=== PATIENT | male | born 1975 | race Caucasian/White ===

== ENCOUNTER → 2020-12-10 09:39 | Outpatient (BNVA) | payer OTHER, SELFPAY | PROVIDERS: Visit Provider Internal Medicine | DX: S49.92XD Unspecified injury of left shoulder and upper arm, subsequent encounter (principal); X58.XXXD Exposure to other specified factors, subsequent encounter; M54.5 Low back pain | CPT/HCPCS: 99202 ==

== ENCOUNTER 2022-10-19 15:52 | Emergency (ER) | payer OTHER, MEDICAID, SELFPAY ==
--- NOTE | ~2022-10-19 | XR_ITS ---
EXAMINATION: XR CHEST CLINICAL INFORMATION: Status post heavy lifting with rib cage pain. COMPARISON: None available. TECHNIQUE: 2 views of the chest were obtained. FINDINGS: The lungs are well-expanded and clear of acute process. The heart size and pulmonary vascularity is normal. No gross bony abnormality seen except for mild dextro scoliosis mid dorsal spine. XR/XR chest 2V IMPRESSION: Unremarkable chest examination.
[2022-10-19 16:10] VITALS: BP 115/69; PULSE 78; RESP 15; TEMP 37.1; O2SAT 97; BMI 26.4
--- NOTE | 2022-10-19 16:13 | ED.GENADULT ---
HPI - General Adult General Chief complaint: Back Pain/Injury <MAICOL Nicholson Last Filed: 10/19/22 16:16> Stated complaint: lifted something at work has pain in chest/back <MAICOL Nicholson Last Filed: 10/19/22 16:16> Time Seen by Provider: 10/19/22 16:54 <MAICOL Nicholson - Last Filed: 10/19/22 16:16> Source: patient <MAICOL Hancock Last Filed: 10/19/22 18:07> Mode of arrival: ambulatory <MAICOL Hancock Last Filed: 10/19/22 18:07> History of Present Illness HPI narrative: 47 yo M with no sig PMHx c/o L sided anterior lateral rib pain s/p lifting 100lb box at work a few days ago. States when lifted box felt a pop. Denies direct injury, trauma or fall. Pain worse with palpation, movement and deep breathing. Denies abd pain, N/V/D, hematuria, dysuria <MAICOL Hancock Last Filed: 10/19/22 18:07> Onset (ago): day(s) <MAICOL Hancock Last Filed: 10/19/22 18:07> Related Data Home medications: Previous Rx's Medication Instructions Recorded acetaminophen 500 mg tablet 500 mg PO Q6H PRN fever or pain 10/19/22 (Tylenol Extra Strength) #14 tabs cyclobenzaprine 5 mg tablet 5 mg PO Q8H PRN pain (scale score 10/19/22 7-10) 5 days #14 tabs lidocaine 5 % topical patch 1 patch topical DAILY PRN pain #30 10/19/22 (Lidoderm) ea naproxen 500 mg tablet 500 mg PO BID PRN pain 10 days #20 10/19/22 tabs <MAICOL Nicholson Last Filed: 10/19/22 16:16> Allergies/adverse reactions: Allergies Allergy/AdvReac Type Severity Reaction Status Date / Time No Known Allergies Allergy Verified 10/19/22 16:14 <MAICOL Nicholson Last Filed: 10/19/22 16:16> Review of Systems Review of Systems: Constitutional: No Fever, No Chills ENT/Mouth: No Ear Pain, No Nasal Congestion, No sore throat, No Rhinorrhea, No Swallowing Difficulty Cardiovascular: + Chest Wall Pain, + SOB Respiratory: No Cough, No Sputum, No Wheezing Gastrointestinal: No Nausea, No Vomiting, No Diarrhea, No Constipation, No Abdominal pain Genitourinary: No Dysuria, No Urinary Frequency, No Flank Pain Musculoskeletal: No joint pain, No Myalgias, No Joint Swelling Skin: No Skin Lesions, No rash Neuro: No Weakness, No Numbness, No Paresthesias <MAICOL Hancock Last Filed: 10/19/22 18:07> Yes all other systems are reviewed and are negative <MAICOL Hancock Last Filed: 10/19/22 18:07> Constitutional: Constitutional: Reports as per HPI <MAICOL Hancock Last Filed: 10/19/22 18:07> [facility] Past Medical History Attestation statement: The following information was validated with the patient. <MAICOL Hancock Last Filed: 10/19/22 18:07> Social History Social History: Social History Advance Directives: No Advance Directives Information Provided: No <MAICOL Nicholson Last Filed: 10/19/22 16:16> Physical Exam ED Vital Signs: Vital Signs - 24 hr 10/19/22 16:10 Temperature 98.7 F Pulse Rate 78 Respiratory Rate 15 Blood Pressure 115/69 Pulse Oximetry 97 Oxygen Delivery Method Room Air BMI result Body Mass Index 26.4 <MAICOL Nicholson - Last Filed: 10/19/22 16:16> Vital Signs - 24 hr 10/19/22 16:10 Temperature 98.7 F Pulse Rate 78 Respiratory Rate 15 Blood Pressure 115/69 Pulse Oximetry 97 Oxygen Delivery Method Room Air BMI result Body Mass Index 26.4 <MAICOL Hancock Last Filed: 10/19/22 18:07> Const General: cooperative, healthy appearing and no acute distress <MAICOL Hancock Last Filed: 10/19/22 18:07> Orientation/consciousness: patient oriented x3 <MAICOL Hancock Last Filed: 10/19/22 18:07> Limitations: no limitations <MAICOL Hancock - Last Filed: 10/19/22 18:07> HENMT Head: Yes normal to inspection and Yes atraumatic <MAICOL Hancock - Last Filed: 10/19/22 18:07> Ears: hearing grossly normal bilaterally <MAICOL Hancock - Last Filed: 10/19/22 18:07> General nose exam: Normal external nose present <MAICOL Hancock - Last Filed: 10/19/22 18:07> Face and sinus: Yes normal facial exam <MAICOL Hancock - Last Filed: 10/19/22 18:07> Eyes General: appearance normal, both eyes and all related structures <MAICOL Hancock - Last Filed: 10/19/22 18:07> EOM: EOMs intact bilaterally <MAICOL Hancock - Last Filed: 10/19/22 18:07> Neck Neck: Yes normal visual inspection and Yes no meningeal signs <MAICOL Hancock - Last Filed: 10/19/22 18:07> Chest Other: +ttp to right anterior lateral chest wall, reproducing subjective complaint, no erythema/eccyhmosis or flail chest. No CVAT <MAICOL Hancock - Last Filed: 10/19/22 18:07> Chest palpation & inspection: normal inspection of the chest, no crepitus and tenderness <MAICOL Hancock - Last Filed: 10/19/22 18:07> Resp Effort & Inspection: normal respiratory effort and no respiratory distress <MAICOL Hancock - Last Filed: 10/19/22 18:07> Auscultation: clear to auscultation bilaterally, no rales and no wheezes <MAICOL Hancock - Last Filed: 10/19/22 18:07> Cardio Rate: regular rate <MAICOL Hancock - Last Filed: 10/19/22 18:07> Heart sounds: S1 normal heart sound present and S2 normal heart sound present <MAICOL Hancock - Last Filed: 10/19/22 18:07> GI Inspection: Yes normal to inspection <MAICOL Hancock - Last Filed: 10/19/22 18:07> Palpation (GI): Soft to palpation, nontender, no guarding and not rigid <MAICOL Hancock - Last Filed: 10/19/22 18:07> General: Yes no CVA tenderness <Thania Johnson PA - Last Filed: 10/19/22 18:07> Back/Spine/Pelvis Other: No midline cervical/thoracic/lumbar spinous tenderness/step-off or deformity <MAICOL Hancock - Last Filed: 10/19/22 18:07> Back: no CVA tenderness <MAICOL Hancock - Last Filed: 10/19/22 18:07> Skin Rashes: no rashes <MAICOL Hancock - Last Filed: 10/19/22 18:07> Wounds: no wounds <MAICOL Hancock - Last Filed: 10/19/22 18:07> Neuro General: patient oriented x3, gait normal, tone normal, moves all extremities, no meningeal signs and no focal motor deficits <MAICOL Hancock - Last Filed: 10/19/22 18:07> Gait exam (Neuro): Normal gait present <MAICOL Hancock - Last Filed: 10/19/22 18:07> Extrem General: Yes normal to inspection <MAICOL Hancock - Last Filed: 10/19/22 18:07> Course Course Course Narrative: RME-16:15pm - 47yoM with No Sig PMHx who is presenting to the ER with complaints of bilateral rib cage pain that started Thursday after he lifted over 100 lb box at work and immediately started having this pain. Reports that the pain radiates to his back. Worse with deep inspiration. He denies any dizziness, change in vision, jaw pain, nausea/vomiting, paresthesias, dyspnea on exertion orthopnea, palpitations or paresthesias, cough, sputum production, abdominal pain, flank pain, dysuria hematuria or any other symptoms complaints or concerns at this time Plan: Labs, EKG, chest x-ray patient with most likely muscular skeletal pain patient can be seen in [facility] for further evaluation treatment. <MAICOL Nicholson - Last Filed: 10/19/22 16:16> RME-16:15pm - 47yoM with No Sig PMHx who is presenting to the ER with complaints of bilateral rib cage pain that started Thursday after he lifted over 100 lb box at work and immediately started having this pain. Reports that the pain radiates to his back. Worse with deep inspiration. He denies any dizziness, change in vision, jaw pain, nausea/vomiting, paresthesias, dyspnea on exertion orthopnea, palpitations or paresthesias, cough, sputum production, abdominal pain, flank pain, dysuria hematuria or any other symptoms complaints or concerns at this time Plan: Labs, EKG, chest x-ray patient with most likely muscular skeletal pain patient can be seen in [facility] for further evaluation treatment. 173--XR chest 2V IMPRESSION: Unremarkable chest examination. Results discussed with patient including worrisome signs and symptoms and strict return precautions, and when to return to the emergency department. They verbalized understanding and feel safe for discharge at this time. <MAICOL Hancock - Last Filed: 10/19/22 18:07> Medications Administered Discontinued Medications Generic Name Dose Route Start Last Admin Trade Name Freq PRN Reason Stop Dose Admin Cyclobenzaprine HCl 10 mg 10/19/22 17:31 10/19/22 17:39 Cyclobenzaprine Hcl 10 Mg Tablet PO 10/19/22 17:32 10 mg ONCE ONE Administration Ketorolac Tromethamine 30 mg 10/19/22 17:31 10/19/22 17:40 Ketorolac Tromethamine 30 Mg/Ml Vial IM 10/19/22 17:32 30 mg ONCE ONE Administration Lidocaine 1 patch 10/19/22 17:31 10/19/22 17:39 Lidocaine 4 % Patch Adh..Patch TRANSDERMA 10/19/22 17:32 1 patch ONCE ONE Administration Protocol <MAICOL Nicholson - Last Filed: 10/19/22 16:16> Medications Administered Discontinued Medications Generic Name Dose Route Start Last Admin Trade Name Freq PRN Reason Stop Dose Admin Cyclobenzaprine HCl 10 mg 10/19/22 17:31 10/19/22 17:39 Cyclobenzaprine Hcl 10 Mg Tablet PO 10/19/22 17:32 10 mg ONCE ONE Administration Ketorolac Tromethamine 30 mg 10/19/22 17:31 10/19/22 17:40 Ketorolac Tromethamine 30 Mg/Ml Vial IM 10/19/22 17:32 30 mg ONCE ONE Administration Lidocaine 1 patch 10/19/22 17:31 10/19/22 17:39 Lidocaine 4 % Patch Adh..Patch TRANSDERMA 10/19/22 17:32 1 patch ONCE ONE Administration Protocol <MAICOL Hancock - Last Filed: 10/19/22 18:07> Medical Decision Making Medical Decision Making [facility] Narrative: 47 yo M with no sig PMHx c/o L sided anterior lateral rib pain s/p lifting 100lb box at work a few days ago. States when lifted box felt a pop. On exam VSS, NAD, reproducible right anteriorlateral chest wall ttp, no flail chest or rash/erythema. No CVAT. Abdomen soft and nontender. Concern for MSK strain vs costochondritis vs rib fracture. Low suspicion for intaabdominal etiology including cholecystitis/lithiasis vs pancreatitis or renal stone or ACS/PE Plan: EKG, CXR, pain control Please refer to course for remaining clinical decision making, interpretation of labs/imaging results, and discussions with consultants and/or family members. <MAICOL Hancock - Last Filed: 10/19/22 18:07> Differential Diagnosis Differential Diagnoses: The differential diagnosis associated with the presentation includes <MAICOL Hancock - Last Filed: 10/19/22 18:07> As above <MAICOL Hancock - Last Filed: 10/19/22 18:07> Admission/Observation Consideration of admission/observation: Escalation of care including admission/observation considered <MAICOL Hancock Last Filed: 10/19/22 18:07> Lab Data [facility] Lab Attestation statement: I reviewed the patient's lab results. <MAICOL Hancock Last Filed: 10/19/22 18:07> Independent Interpretation I performed an independent interpretation of an: EKG <MAICOL Hancock Last Filed: 10/19/22 18:07> Interpretation: EKG NSR rate 75, MD interval 158. incomplete RBBB, no previous EKGs to compare. No STEMI <MAICOL Hancock Last Filed: 10/19/22 18:07> Radiology Impression Discussion of test interpretation with radiology: I have reviewed the radiologist's reading. <MAICOL Hancock - Last Filed: 10/19/22 18:07> External Record Review External record reviewed: Inpatient record, Office record, Outpatient record, Prior outpatient labs, Prior outpatient radiology, Primary care record and Outside ED record <MAICOL Hancock - Last Filed: 10/19/22 18:07> Discharge Plan Discharge Clinical Impression: Acute costochondritis <MAICOL Nicholson Last Filed: 10/19/22 16:16> Patient Disposition: Home, Self-Care <MAICOL Nicholson Last Filed: 10/19/22 16:16> Instructions: Costochondritis (ED) <MAICOL Nicholson Last Filed: 10/19/22 16:16> Additional Instructions: Your pain is likely musculoskeletal. your x-ray is unremarkable Flexeril is a muscle relaxer, take at night as it makes you drowsy, do not drive, drink alcohol, or operate machinery while taking it Naproxen as an anti-inflammatory / pain medication, take with food Lidoderm patches are numbing patches, apply to painful area In addition take Tylenol at home If symptoms persist or worsen, pain becomes unbearable, you developed urinary retention or incontinence, or weakness return to the ED <MAICOL Nicholson Last Filed: 10/19/22 16:16> Prescriptions: New acetaminophen [Tylenol Extra Strength] 500 mg tablet 500 mg PO Q6H PRN (Reason: fever or pain) Qty: 14 0RF lidocaine [Lidoderm] 5 % adhesive patch,medicated 1 patch topical DAILY MDD remove after 12 hours PRN (Reason: pain) Qty: 30 0RF Rx Instructions: leave on most painful area for up to 12 hrs naproxen 500 mg tablet 500 mg PO BID PRN (Reason: pain) 10 Days Qty: 20 0RF cyclobenzaprine 5 mg tablet 5 mg PO Q8H PRN (Reason: pain (scale score 7-10)) 5 Days Qty: 14 0RF <MAICOL Nicholson Last Filed: 10/19/22 16:16> Referrals: [facility] [Primary Care Provider] - <MAICOL Nicholson Last Filed: 10/19/22 16:16>
--- NOTE | 2022-10-19 16:14 | ECG_ITS ---
Test Reason : chest /back pain Blood Pressure : / mmHG Vent. Rate : 075 BPM Atrial Rate : 075 BPM P-R Int : 158 ms QRS Dur : 094 ms QT Int : 374 ms P-R-T Axes : 052 -33 014 degrees QTc Int : 417 ms Normal sinus rhythm Left axis deviation Incomplete right bundle branch block Abnormal ECG No previous ECGs available Referred By: Oneyda Gibbs Electronically Signed By:GEORGINA POE
[2022-10-19] MEDS: Lidocaine 4 % Patch ADH..PATCH 1 PATCH TRANSDERMA (17:39)
[2022-10-19] MEDS: Cyclobenzaprine HCl 10 MG TABLET PO (17:39)
[2022-10-19] MEDS: Ketorolac Tromethamine 30 MG/ML VIAL IM (17:40)
== END 2022-10-19 18:21 | disposition home or self-care (01) ==
PROVIDERS: Emergency Provider Internal Medicine
DX: S39.92XA Unspecified injury of lower back, initial encounter (principal); R07.89 Other chest pain; M54.50 Low back pain, unspecified; X50.0XXA Overexertion from strenuous movement or load, initial encounter; Y93.9 Activity, unspecified; Y92.9 Unspecified place or not applicable; Y99.0 Civilian activity done for income or pay; Z79.899 Other long term (current) drug therapy
CPT/HCPCS: 71046; 93005; 96372; 99283; 99284; J1885

== ENCOUNTER → 2025-01-03 12:25 | Outpatient (BNV) | payer OTHER, SELFPAY | PROVIDERS: Visit Provider Radiology Diagnostic Radiology | DX: M25.711 Osteophyte, right shoulder (principal) | CPT/HCPCS: 73030 ==

== ENCOUNTER 2025-01-03 12:55 | Emergency (ER) | payer OTHER, SELFPAY ==
--- NOTE | ~2025-01-03 | XR_ITS ---
EXAMINATION: XR SHOULDER, RIGHT CLINICAL INFORMATION: pain since heavy lifting at work 2 days ago COMPARISON: None available. TECHNIQUE: External rotation, Grashey, and Y view of the right shoulder. FINDINGS: A.C. and glenohumeral joints are intact. Small osteophyte is present along inferior glenoid. There is a subacromial enthesophyte. XR/XR shoulder RT min 2V IMPRESSION: There is a subacromial spur. Small glenoid osteophyte. Electronically signed by: Raffi Montes MD 01/03/2025 01:33 PM EDT
[2025-01-03 12:58] VITALS: BP 116/67; PULSE 84; RESP 16; TEMP 36.6; O2SAT 97; BMI 26.5
--- NOTE | 2025-01-03 13:08 | ED_ITS ---
HPI - Extremity Problem General Chief complaint: Extremity Injury, Upper Stated complaint: Shoulder Pain Time Seen by Provider: 01/03/25 14:16 Source: patient, RN notes reviewed and other (sig other) Mode of arrival: ambulatory Limitations: no limitations History of Present Illness ED Provider: Dahlia Piper PA-C HPI Narrative: 49-year-old male presenting to emergency department today for evaluation of right-sided shoulder pain. Patient reports this as likely work-related injury. Patient has been doing a job which involves a lot of heavy lifting anywhere between 60-80 lb. He does not recall any specific incident that led to his right shoulder bothering him on the top and lateral portion but reports he is very sore by the end of the day especially on Thursday. He has tried resting it over the weekend but it has not made any difference. 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 He has had no prior trauma to his right shoulder in the past but does report a biceps tear which required surgery in his right forearm. Patient is right-hand dominant. He is denying any paresthesias or weakness. It does hurt when he elevates his arm or lifts anything heavy. He denied any associated neck pain or other falls or trauma. He has not tried to treat this in any way but has concerns about going back to his job with the lifting requirements that it has. MD Complaint: joint pain Pain Consistency: intermittent Location: right Quality: aching Radiation: none Exacerbating factors: range of motion Related Data Previous Rx's ?Medication ?Instructions ?Recorded acetaminophen 500 mg tablet 500 mg PO Q6H PRN fever or pain 10/19/22 (Tylenol Extra Strength) #14 tabs cyclobenzaprine 5 mg tablet 5 mg PO Q8H PRN pain (scal e score 10/19/22 7-10) 5 days #14 tabs lidocaine 5 % topical patch 1 patch topical DAILY PRN pain #30 10/19/22 (Lidoderm) ea naproxen 500 mg tablet 500 mg PO BID PRN pain 10 da ys #20 10/19/22 tabs cyclobenzaprine 10 mg tablet 10 mg PO BEDTIME PRN musc le spasm 01/03/25 #10 tabs meloxicam 15 mg tablet 15 mg PO DAILY #14 tabs 07/30 Allergies Allergy/AdvReac Type Severity Reaction Status Date / Time No Known Allergies Allergy Verified 01/03/25 12:59 [facility] Social History Social History Advance Directives: No Advance Directives Information Provided: No Do you have a plan to hurt others: No Plan Physical Exam Vital Signs: Vital Signs: Last Vital Signs Temp 97.8 F 01/03/25 14:39 Pulse 84 01/03/25 14:39 Resp 16 01/03/25 14:39 BP 116/67 01/03/25 14:39 Pulse Ox 97 01/03/25 14:39 O2 Del Method Room Air 01/03/25 14:39 BMI result Body Mass Index 26.5 Const: Other: Right GH joint with findings below. There is no evidence of the step-off or deformity no significant bony tenderness only over the AC and deltoid region. No ecchymosis or erythema. 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 No midline tenderness step-offs or deformities of entire spine.Motion painful for patient at the level of the GH joint but rest of right upper extremity within normal limits General: cooperative, healthy appearing, comfortable, no acute distress and well developed HEENT: Head: Yes normal to inspection General nose exam: Normal external nose present Face and sinus: Yes normal facial exam Mouth: lip normal Eyes: General: appearance normal, both eyes and all related structures Neck: Neck: Yes normal visual inspection, Yes full ROM, Yes no lymphadenopathy, Yes trachea midline and Yes supple Chest: Chest palpation & inspection: normal inspection of the chest Resp: Effort & Inspection: normal respiratory effort and able to speak in complete sentences Auscultation: clear to auscultation bilaterally Cardio: Jugular venous distension: no JVD Rhythm: regular rhythm Heart sounds: S1 normal heart sound present and S2 normal heart sound present Peripheral pulses: Peripheral pulses 2+ throughout Neuro: Other: Sensation fully intact cap refill is in 3 seconds distal pulses 2+ DTRs intact, Compartments are soft Extrem: General: Yes capillary refill normal, Yes normal exam except as noted, Yes no joint enlargement, Yes no clubbing, cyanosis or edema and Yes no pedal edema Right upper extremity: normal to inspection (right side as below, LEFT SIDE NORMAL), normal capillary refill, edema, no joint enlargement and shoulder/upper arm (Pain resisted GH extension and abduction pain with placing hand behind head) Left upper extremity: normal to inspection, full ROM and normal capillary refill Course Course Course Narrative: This is an RME performed by Mini Bauer CNP: Additional HPI, ROS, PE not included below will be deferred to primary provider. patient is a 49-year-old male who presents emergency department for evaluation of right shoulder pain, endorses do with the heavy lifting at work, onset of pain 5 days ago. Plan: XR Medical Decision Making Medical Decision Making [facility] Narrative: The patient presentation and clinical findings are consistent with mechanism of injury. Based on information provided to me today, it is my medical opinion that the injury is a work-related injury. Patient presents to ED today for evaluation of Right-sided shoulder pain. JANETH is Repetitive lifting. Patient is afebrile with stable vitals and well-appearing. History and physical as stated above. Patient is neurovascular intact in the affected extremity. X- rays were obtained to further evaluate. They show no acute fractures. Patient's symptoms are consistent with a sprain. There is no evidence of neurovascular compromise or shoulder impingement syndrome. Negative Nexus cri teria for cervical spine fracture imaging not warranted of the cervical spine. Discussed icing it, elevating and alternating ibuprofen and Tylenol for discomfort. Discussed that if there is no significant improvement in the next 1 to 2 weeks to follow-up with an orthopedic clinic, information given. I have also advised that he follow-up with occupational medicine should he require further care not able to get in to her orthopedic office soon. Discussed symptomatic treatment with the patient. Discussed return precautions. Patient verbalized understanding of the above plan and is in agreement with the above plan. The patient was discharged home in stable condition with return precautions. Differential Diagnosis Differential Diagnoses: The differential diagnosis associated with the presentation includes see MDM Admission/Observation Consideration of admission/observation: Escalation of care including admission/observation considered Independent Interpretation I performed an independent interpretation of an: Plain X-Ray Interpretation: No fracture or dislocation Radiology Impression Discussion of test interpretation with radiology: I have reviewed the radiologist's reading. Radiologist Impression: Same as preliminary read Tests considered The following testing was considered but not selected: If this was fall related would have considered neck and head CT imaging if warranted Prescription Management I considered prescription management with: Pain Medication Discharge Plan Discharge Clinical Impression: Muscle strain of right shoulder region Patient Disposition: Home, Self-Care Instructions: Muscle Strain (DC) Additional Instructions: You were evaluated for an injury to your shoulder.? You had x-rays done that did not show any acute fracture. Based on your physical exam and your level of pain is this is most consistent with a deltoid muscle strain likely from a repetitive lifting at your job. There is no evidence of neurovascular compromise today or shoulder impingement You have been assigned light duty at work and should follow up with occupational medicine/Orthopedics for continued care if needed Take Tylenol and/or Motrin as needed for pain. Use intermittent ice 4 or 5 times a day, 20 minutes at a time,? for a few days. Return immediately or call your doctor for increased or uncontrolled pain, numbness, tingling, or weakness of extremities. Consider use of topical therapies such as lidocaine or Salonpas patches do not use other topical therapies at the same time Prescriptions: New meloxicam 15 mg tablet 15 mg PO DAILY Qty: 14 0RF cyclobenzaprine 10 mg tablet 10 mg PO BEDTIME PRN (Reason: muscle spasm) Qty: 10 0RF No Action acetaminophen [Tylenol Extra Strength] 500 mg tablet 500 mg PO Q6H PRN (Reason: fever or pain) Qty: 14 0RF lidocaine [Lidoderm] 5 % adhesive patch,medicated 1 patch topical DAILY MDD remove after 12 hours PRN (Reason: pain) Qty: 30 0RF Rx Instructions: leave on most painful area for up to 12 hrs naproxen 500 mg tablet 500 mg PO BID PRN (Reason: pain) 10 Days Qty: 20 0RF cyclobenzaprine 5 mg tablet 5 mg PO Q8H PRN (Reason: pain (scale score 7-10)) 5 Days Qty: 14 0RF Referrals: [facility] [Provider Group, Occupational Medicine] - 1 week Referral Note: recheck for continued care need of PT/ light duty assignment Stand Alone Forms: Work/School Release Interventions: ED Discharge Assessment Last Done: 01/03/25 14:39 Discharge Date/Time: 01/03/25 14:40 Print Language: Armenian
[2025-01-03 14:39] VITALS: BP 116/67; PULSE 84; RESP 16; TEMP 36.6; O2SAT 97
== END 2025-01-03 14:40 | disposition home or self-care (01) ==
PROVIDERS: Emergency Provider Emergency Medicine
DX: S46.911A Strain of unspecified muscle, fascia and tendon at shoulder and upper arm level, right arm, initial encounter (principal); M25.511 Pain in right shoulder; X58.XXXA Exposure to other specified factors, initial encounter; Y93.9 Activity, unspecified; Y92.9 Unspecified place or not applicable; Y99.8 Other external cause status
CPT/HCPCS: 73030; 99282; 99283

== ENCOUNTER 2025-01-10 12:38 | Emergency (ER) | payer OTHER, SELFPAY ==
[2025-01-10 12:53] VITALS: BP 110/71; PULSE 75; RESP 16; TEMP 36.7; O2SAT 98; BMI 26.7
--- NOTE | 2025-01-10 12:57 | ED_ITS ---
HPI - General Adult General Chief complaint: General Medical Stated complaint: recheck muscle strain Time Seen by Provider: 01/10/25 12:55 Source: patient Mode of arrival: ambulatory Limitations: no limitations History of Present Illness ED Provider: Cristobal Short HPI narrative: 49 yold male presents to the ED for clearance to go back to work without restrictions. Patient was seen recently for work injury and was given return to work with restrictions note. Patient states no longer has pain or limitations and wants a new note with return to work with no restriction. patient states no new complaints. Related Data Previous Rx's ?Medication ?Instructions ?Recorded acetaminophen 500 mg tablet 500 mg PO Q6H PRN fever or pain 10/19/22 (Tylenol Extra Strength) #14 tabs cyclobenzaprine 5 mg tablet 5 mg PO Q8H PRN pain (scal e score 10/19/22 7-10) 5 days #14 tabs lidocaine 5 % topical patch 1 patch topical DAILY PRN pain #30 10/19/22 (Lidoderm) ea naproxen 500 mg tablet 500 mg PO BID PRN pain 10 da ys #20 10/19/22 tabs cyclobenzaprine 10 mg tablet 10 mg PO BEDTIME PRN musc le spasm 01/03/25 #10 tabs meloxicam 15 mg tablet 15 mg PO DAILY #14 tabs 07/30 Allergies Allergy/AdvReac Type Severity Reaction Status Date / Time No Known Allergies Allergy Verified 01/10/25 12:55 Review of Systems Review of Systems: medical clearance Yes all other systems are reviewed and are negative [facility] Social History Social History Advance Directives: No Advance Directives Information Provided: Yes Do you have a plan to hurt others: No Plan Physical Exam ED Vital Signs: Vital Signs - 24 hr 01/10/25 12:53 Temperature 98.1 F Pulse Rate 75 Respiratory Rate 16 Blood Pressure 110/71 Pulse Oximetry 98 Oxygen Delivery Method Room Air BMI result Body Mass Index 26.7 Const General: cooperative, healthy appearing, comfortable, no acute distress, well developed, alert, awake and Physically active Orientation/consciousness: patient oriented x3 HENMT Head: Yes normal to inspection, Yes No palpable skull fracture present, Yes normocephalic, Yes atraumatic and No abrasion Eyes General: appearance normal, both eyes and all related structures Neck Neck: Yes normal visual inspection, Yes full ROM, Yes no lymphadenopathy, Yes no meningeal signs, Yes trachea midline, Yes supple and No tender Chest Chest palpation & inspection: normal inspection of the chest and normal palpation of entire chest wall Resp Effort & Inspection: normal respiratory effort and able to speak in complete sentences Auscultation: clear to auscultation bilaterally Cardio Jugular venous distension: no JVD Heart sounds: S1 normal heart sound present and S2 normal heart sound present GI Inspection: Yes normal to inspection Palpation (GI): Soft to palpation, not firm, nontender, no guarding and not rigid General: Yes no CVA tenderness Back/Spine/Pelvis Back: no CVA tenderness and No back tenderness Skin General skin exam: no rashes or lesions noted, elasticity normal and turgor normal Neuro General: patient oriented x3, gait normal, tone normal, moves all extremities, Normal light touch and pain sensation, no meningeal signs, no focal motor deficits and CN's II-XI intact bilaterally Extrem General: Yes normal to inspection, Yes full ROM and Yes capillary refill normal Psych Appearance: grossly normal, well kempt and not disheveled Medical Decision Making Medical Decision Making MDM Narrative: 49-year-old male presents to ED for clearance to return back to work at full strength. Patient was seen here recently for shoulder strain and now states he feels better and wants light duty to be ended so he could return to work at full capacity. Patient states no new complaints. Patient has been compliant with his med. Presently not suspecting any cauda equinus syndrome, epidural abscess, carotid dissection, DVT, dislocation, arterial occlusion, compartment syndrome, lymphangitis, or any of life-threatening etiology. Patient has equal strength. Patient explained worrisome signs and informed to return to the ED immediately Differential Diagnosis Differential Diagnoses: The differential diagnosis associated with the presentation includes (Shoulder strain) Admission/Observation Consideration of admission/observation: Escalation of care including admission/ observation considered Independent Historian Clinical information obtained from an independent historian. History obtained from or confirmed by: Other (Patient) Prescription Management I considered prescription management with: Pain Medication Discharge Plan Discharge Clinical Impression: Normal exam Patient Disposition: Home, Self-Care Instructions: Normal Exam (ED) Additional Instructions: You may return to work at full strength starting tomorrow. Recommend follow up with the primary care provider. Return to the ED immediately for any severe shoulder pain, swelling, weakness, tingling, neck pain, redness, bluish black discoloration, chest pain, shortness of breath, or any other concerning symptoms. Prescriptions: No Action acetaminophen [Tylenol Extra Strength] 500 mg tablet 500 mg PO Q6H PRN (Reason: fever or pain) Qty: 14 0RF lidocaine [Lidoderm] 5 % adhesive patch,medicated 1 patch topical DAILY MDD remove after 12 hours PRN (Reason: pain) Qty: 30 0RF Rx Instructions: leave on most painful area for up to 12 hrs naproxen 500 mg tablet 500 mg PO BID PRN (Reason: pain) 10 Days Qty: 20 0RF cyclobenzaprine 5 mg tablet 5 mg PO Q8H PRN (Reason: pain (scale score 7-10)) 5 Days Qty: 14 0RF meloxicam 15 mg tablet 15 mg PO DAILY Qty: 14 0RF cyclobenzaprine 10 mg tablet 10 mg PO BEDTIME PRN (Reason: muscle spasm) Qty: 10 0RF Stand Alone Forms: Work/School Release Interventions: ED Discharge Assessment Last Done: 01/10/25 13:31 Discharge Date/Time: 01/10/25 13:32 Print Language: [place]
[2025-01-10 13:31] VITALS: BP 110/71; PULSE 75; RESP 16; TEMP 36.7; O2SAT 98
== END 2025-01-10 13:32 | disposition home or self-care (01) ==
LOC: HO.ED 13:15
PROVIDERS: Emergency Provider Emergency Medicine Emergency Medical Services
DX: Z02.79 Encounter for issue of other medical certificate (principal); Z04.2 Encounter for examination and observation following work accident; S46.919D Strain of unspecified muscle, fascia and tendon at shoulder and upper arm level, unspecified arm, subsequent encounter; X58.XXXD Exposure to other specified factors, subsequent encounter
CPT/HCPCS: 99282

== ENCOUNTER 2025-02-10 07:02 | Emergency (ER) | payer SELFPAY ==
--- NOTE | ~2025-02-10 | XR_ITS ---
EXAMINATION: XR CHEST 2 VIEWS HISTORY: cough, fever COMPARISON: Comparison is made with the prior examination dated 10/19/2022. FINDINGS: PA and lateral views of the chest are submitted. The lungs are expanded and clear. There is no pleural effusion, pneumothorax, or pulmonary vascular congestion. The heart is normal in size. There is mild dextroscoliosis. XR/XR chest 2V IMPRESSION: No acute cardiopulmonary abnormality. Electronically signed by: Elie Lagos MD 02/10/2025 08:05 AM EDT
--- NOTE | ~2025-02-10 | XR_ITS ---
EXAMINATION: XR SHOULDER 2 OR MORE VIEWS RIGHT HISTORY: pain COMPARISON: Comparison is made with the prior examination dated 01/03/2025. FINDINGS: Three views of the right shoulder are submitted. Osseous mineralization is normal. There is no fracture or dislocation. The glenohumeral joint is maintained. There is mild degenerative change of the AC joint. The soft tissues are unremarkable. XR/XR shoulder RT min 2V IMPRESSION: Mild degenerative change of the AC joint. Electronically signed by: Elie Lagos MD 02/10/2025 08:04 AM EDT
[2025-02-10 07:29] VITALS: BP 125/87; PULSE 100; RESP 16; TEMP 37.1; O2SAT 97; BMI 26.5
--- NOTE | 2025-02-10 07:31 | ED.URI ---
HPI - URI/Sore Throat General Chief Complaint: General Medical Stated Complaint: Vomiting Body Aches Time Seen by Provider: 02/10/25 08:27 Source: patient Mode of arrival: ambulatory Limitations: no limitations History of Present Illness ED Provider: YENY DOLAN Narrative: 50 yo male with no PMH sick with body aches, cough, runny nose, vomiting x 2 , states no travel, procedures, sick contacts. Has had 3 covid shots in the past. He denies diarrhea. MD elicited complaint: fever, cough, rhinorrhea and nasal congestion Onset (ago): day(s) (2) Consistency: progressively worsening Severity: moderate Exacerbating factors: nothing Relieving factors: nothing Associated symptoms: fever, chills, myalgias, headache, rhinorrhea, nasal congestion, cough and nausea Treatments prior to arrival: none Related Data Previous Rx's ?Medication ?Instructions ?Recorded acetaminophen 500 mg tablet 500 mg PO Q6H PRN fever or pain 10/19/22 (Tylenol Extra Strength) #14 tabs cyclobenzaprine 5 mg tablet 5 mg PO Q8H PRN pain (scale score 10/19/22 7-10) 5 days #14 tabs lidocaine 5 % topical patch 1 patch topical DAILY PRN pain #30 10/19/22 (Lidoderm) ea naproxen 500 mg tablet 500 mg PO BID PRN pain 10 days #20 10/19/22 tabs cyclobenzaprine 10 mg tablet 10 mg PO BEDTIME PRN muscle spasm 01/03/25 #10 tabs meloxicam 15 mg tablet 15 mg PO DAILY #14 tabs 01/03/25 acetaminophen 500 mg capsule 500 mg PO Q6H PRN fever or pain 02/10/25 #20 caps ibuprofen 600 mg tablet 600 mg PO Q6H PRN pain #30 tabs 02/10/25 ondansetron 4 mg disintegrating 4 mg PO Q8H PRN nausea and 02/10/25 tablet vomiting #20 tabs Allergies Allergy/AdvReac Type Severity Reaction Status Date / Time No Known Allergies Allergy Verified 02/10/25 07:32 Review of Systems Review of Systems: Constitutional : positive Fever, positive Chills, positive fatigue, positive Malaise ENT/Mouth : positive sore throat, positive runny nose Eyes: No Discharge Cardiovascular : No Chest Pain, No SOB Respiratory : No Cough, No Sputum Gastrointestinal : No Nausea, No Vomiting, No Diarrhea Genitourinary : No Dysuria, No Urinary Frequency Musculoskeletal : positive Myalgia Skin : No rash Neuro : No Headache Yes all other systems are reviewed and are negative [facility] Past Medical History Attestation statement: The following information was validated with the patient. Source: old records reviewed Medical History No pertinent past medical history Social History Social History (Updated 02/10/25 @ 09:00 by Doris Burton DO) Patient Tobacco Use Status: Never used Tobacco Physical Exam Vital Signs: Vital Signs: Last Vital Signs Temp 98.8 F 02/10/25 08:38 Pulse 100 02/10/25 08:38 Resp 16 02/10/25 08:38 BP 125/87 02/10/25 08:38 Pulse Ox 97 02/10/25 08:38 O2 Del Method Room Air 02/10/25 08:38 BMI result Body Mass Index 26.5 Appearance: Alert. Oriented X3. No acute distress. Eyes: Pupils equal, round and reactive to light. ENT: Pharynx normal. Neck: Normal inspection. Neck supple. CVS: Normal heart rate and rhythm. Pulses normal. Respiratory: No respiratory distress. Breath sounds normal. Abdomen: Soft and nontender. Skin: Skin warm and dry. Normal skin color. Normal skin turgor. Extremities: No lower extremity edema. No calf ttp Neuro: Oriented X 3. No motor deficit. No sensory deficit. CN2-12 intact Course Course Course Narrative: 50 yo male healthy here with c/o 2 days of body aches, fevers, cough, vomited yesterday, weakness no sick contacts, recent travel, procedures. He states tried some OTC no improvements. He has no PMH. He does not smoke. At this time basic labs, CXR, viral panel, ODT zofran. this is a RAPID medical screening exam the rest of the history and physical exam is to be done by the main provider. YENY 02/10/25 732am Medications Administered Discontinued Medications Generic Name Dose Route Start Last Admin Trade Name Freq PRN Reason Stop Dose Admin Ibuprofen 600 mg 02/10/25 07:34 02/10/25 08:35 Ibuprofen 600 Mg Tablet PO 02/10/25 07:35 600 mg ONCE ONE Administration Ondansetron HCl 4 mg 02/10/25 07:30 02/10/25 07:34 Ondansetron Odt 4 Mg Tab.Yary GÓMEZ 02/10/25 07:31 4 mg ONCE ONE Administration Medical Decision Making Medical Decision Making [facility] Narrative: 50 yo male with no PMH here with covid like symptoms x 2 days no CP/SOB no hypoxia. At this time will need basic labs, viral panel, CXR - he is well hydrated and overall clear lungs and benign abdominal exam. He has had 3 covid shots in past. Differential Diagnosis Differential Diagnoses: The differential diagnosis associated with the presentation includes viral syndrome, COVID, pneumonia Admission/Observation Consideration of admission/observation: Escalation of care including admission/observation considered VS stable, work up negative stable for DC Lab Data [facility] Lab Attestation statement: I reviewed the patient's lab results. 02/10/25 07:40 02/10/25 07:40 Labs: Lab Results 02/10/25 Range/Units 07:40 WBC 9.8 (4.8-10.8) X10*3/uL RBC 5.43 (4.60-5.80) X10*6/uL Hgb 15.3 (14.0-18.0) g/dl Hct 45.0 (42.0-52.0) % MCV 82.9 (80.0-98.0) fL MCH 28.2 (27.0-33.0) pg MCHC 34.0 (31.0-36.0) g/dl RDW 12.9 (11.0-16.0) % Plt Count 228 (160-400) X10*3/uL MPV 9.6 (9.4-12.4) fL Immature Gran % (Auto) 0.3 (0.0-0.4) % Neut % (Auto) 85.3 H (45-73) % Lymph % (Auto) 6.3 L (20-40) % Schleicher % (Auto) 7.8 (2-11) % Eos % (Auto) 0.0 (0-4) % Baso % (Auto) 0.3 (0-2) % Lymph # (Auto) 0.6 L (1.2-4.9) X10*3/uL Schleicher # (Auto) 0.8 (0.1-1.2) X10*3/uL Eos # (Auto) 0.0 (0.0-0.4) X10*3/uL Baso # (Auto) 0.0 (0.0-0.2) X10*3/uL Abs Immat Gran (auto) 0.03 (0.00-0.03) X10*3/uL Absolute Neuts (auto) 8.3 (2.0-8.3) x10*3/uL Absolute Nucleated RBC 0.000 (0.0-0.012) X10*3/uL Nucleated RBC % (auto) 0.0 (0.0-0.2) /100WBC Sodium 138 (135-145) mmol/L Potassium 4.1 (3.3-5.1) mmol/L Chloride 104 (96-108) mmol/L Carbon Dioxide 27 (22-29) mmol/L Anion Gap 11 L (12-20) BUN 13 (9-16) mg/dL Creatinine 0.95 (0.5-1.4) mg/dL Estim Creat Clear Calc 99.0 Estimated GFR > 60 Random Glucose 102 (60-115) mg/dL Calcium 9.3 (8.4-10.2) mg/dL Total Bilirubin 0.5 (0.0-1.0) mg/dL Direct Bilirubin 0.2 (0.0-0.5) mg/dL AST 37 (5-37) U/L ALT 20 (0-40) U/L Alkaline Phosphatase 72 (39-117) U/L Total Protein 7.5 (6.5-8.0) g/dL Albumin 4.6 (3.5-5.0) g/dL Influenza Type A (PCR) NEGATIVE (Negative) Influenza Type B (PCR) NEGATIVE (Negative) RSV RNA Qual (PCR) NEGATIVE (Negative) SARS-CoV-2 RNA (RT-PCR) POSITIVE A (Negative) Independent Interpretation I performed an independent interpretation of an: Plain X-Ray (normal ) Radiology Impression Discussion of test interpretation with radiology: I have reviewed the radiologist's reading. External Record Review External record reviewed: Outpatient record Prescription Management I considered prescription management with: Pain Medication, Antiviral and Other Discharge Plan Discharge Clinical Impression: COVID-19 Patient Disposition: Home, Self-Care Instructions: COVID-19 (Coronavirus Disease 2019) (ED) Additional Instructions: rest and stay hydrated wear a mask and do not spread to other alternate tylenol and motrin for pain/fevers return for severe chest pain, unable to eat or drink unable to walk to your bathroom you are so short of breath next dose of motrin at 2pm Prescriptions: New ibuprofen 600 mg tablet 600 mg PO Q6H PRN (Reason: pain) Qty: 30 0RF ondansetron 4 mg tablet,disintegrating 4 mg PO Q8H PRN (Reason: nausea and vomiting) Qty: 20 0RF acetaminophen 500 mg capsule 500 mg PO Q6H PRN (Reason: fever or pain) Qty: 20 0RF No Action acetaminophen [Tylenol Extra Strength] 500 mg tablet 500 mg PO Q6H PRN (Reason: fever or pain) Qty: 14 0RF lidocaine [Lidoderm] 5 % adhesive patch,medicated 1 patch topical DAILY MDD remove after 12 hours PRN (Reason: pain) Qty: 30 0RF Rx Instructions: leave on most painful area for up to 12 hrs naproxen 500 mg tablet 500 mg PO BID PRN (Reason: pain) 10 Days Qty: 20 0RF cyclobenzaprine 5 mg tablet 5 mg PO Q8H PRN (Reason: pain (scale score 7-10)) 5 Days Qty: 14 0RF meloxicam 15 mg tablet 15 mg PO DAILY Qty: 14 0RF cyclobenzaprine 10 mg tablet 10 mg PO BEDTIME PRN (Reason: muscle spasm) Qty: 10 0RF Stand Alone Forms: Work/School Release Interventions: ED Discharge Assessment Last Done: 02/10/25 08:38 Discharge Date/Time: 02/10/25 08:39 Print Language: [place]
[2025-02-10 07:44] LABS: MANUAL DIFF FLAG NO
[2025-02-10 07:52] LABS: Hematocrit 45.0 % (42.0-52.0); Hemoglobin 15.3 g/dl (14.0-18.0); Imm Gran Abs Auto 0.03 X10*3/uL (0.00-0.03); Imm Gran Pct Auto 0.3 % (0.0-0.4); Lymphocytes Absolute Auto 0.6 X10*3/uL (1.2-4.9); Mean Corpuscular HGB Conc 34.0 g/dl (31.0-36.0); Mean Corpuscular Hemoglobin 28.2 pg (27.0-33.0); Mean Corpuscular Volume 82.9 fL (80.0-98.0); NRBC Abs Auto 0.000 X10*3/uL (0.0-0.012); NRBC Pct Auto 0.0 /100WBC (0.0-0.2); Platelet Count 228 X10*3/uL (160-400); Red Blood Count 5.43 X10*6/uL (4.60-5.80); White Blood Count 9.8 X10*3/uL (4.8-10.8)
[2025-02-10 08:02] LABS: Alanine Aminotransferase 20 U/L (0-40); Albumin Level 4.6 g/dL (3.5-5.0); Alkaline Phosphatase 72 U/L (39-117); Anion Gap 11 (12-20); Aspartate Amino Transferase 37 U/L (5-37); Blood Urea Nitrogen 13 mg/dL (9-16); Calcium 9.3 mg/dL (8.4-10.2); Carbon Dioxide 27 mmol/L (22-29); Chloride 104 mmol/L (96-108); Creatinine Clr Calc Pharmacy 99.0; Estimated Glomerular Filt Rate > 60; Potassium 4.1 mmol/L (3.3-5.1); Sodium 138 mmol/L (135-145); Total Protein 7.5 g/dL (6.5-8.0)
[2025-02-10 08:23] LABS: Resp Syncy Virus RNA Qual PCR NEGATIVE (Negative); SARS COV2 PCR INHOUSE POSITIVE (Negative)
[2025-02-10 08:38] VITALS: BP 125/87; PULSE 100; RESP 16; TEMP 37.1; O2SAT 97
== END 2025-02-10 08:39 | disposition home or self-care (01) ==
PROVIDERS: Emergency Provider Emergency Medicine
DX: U07.1 COVID-19 (principal); R05.9 Cough, unspecified; R50.9 Fever, unspecified; R11.10 Vomiting, unspecified
CPT/HCPCS: 71046; 73030; 80048; 80076; 85025; 87637; 99283

== ENCOUNTER → 2025-02-10 07:30 | Outpatient (BNV) | payer SELFPAY | PROVIDERS: Emergency Provider Emergency Medicine; Visit Provider Radiology Diagnostic Radiology | DX: R50.9 Fever, unspecified (principal); M19.011 Primary osteoarthritis, right shoulder | CPT/HCPCS: 71046; 73030 ==